=== PATIENT | female | born 1960 | race Hispanic/Latino ===

== ENCOUNTER 2020-04-08 13:30 | Inpatient (IN) | payer MEDICARE ==
[~2020-04-08] VITALS: Ht 157.5 cm; Wt 69.9 kg
[2020-04-08] MEDS ORDERED: DEXAMETHASONE SOD PHOSPHATE 10MG/ML 1ML VIAL ONE (14:09)
[2020-04-08] MEDS ORDERED: ONDANSETRON HCL 4 MG/2 ML VIAL ONE (14:09)
[2020-04-08] MEDS ORDERED: AZITHROMYCIN 500MG+NS 250ML 250 ML IV ONE (14:09)
[2020-04-08 14:10] LABS: ABG BASE EXCESS -0.2 mmol/L (-2.0-3.0); ABG HCO3 21.9 mmol/L (21.0-28.0); ABG OXYGEN SATURATION 93.8 % (95.0-99.0); ABG PCO2 30 mmHg (32-45)
[2020-04-08] MEDS ORDERED: CEFTRIAXONE SODIUM 1 GM ONE (14:10)
[2020-04-08] MEDS ORDERED: ACETAMINOPHEN 325 MG TAB ONE (14:10)
[2020-04-08 14:38] LABS: BASOPHILS % (AUTO) 0.2 % (0.0-5.0); HEMATOCRIT 45.4 % (36-48); LYMPHOCYTES % (AUTO) 30.3 % (21.0-51.0); MEAN CORPUSCULAR HEMOGLOBIN 29.8 pg (27.0-33.0); MEAN CORPUSCULAR VOLUME 90.3 fL (79-99); NEUTROPHILS % (AUTO) 63.3 % (40.0-77.0); PLATELET COUNT (AUTO) 205 K/uL (130-400); RED BLOOD CELL COUNT(AUTO) 5.03 MIL/uL (4.00-5.50); WHITE BLOOD COUNT (AUTO) 4.7 K/uL (4.8-10.8)
[2020-04-08 14:59] LABS: CREATININE 0.9 mg/dL (0.5-1.5); POTASSIUM 3.7 mmol/L (3.5-5.1)
[2020-04-08 15:03] LABS: ALBUMIN 3.6 g/dL (3.5-5.0); BILIRUBIN,TOTAL 0.3 mg/dL (0.2-1.0); TOTAL PROTEIN, SERUM 7.7 g/dL (6.0-8.3)
[2020-04-08 15:40] LABS: APPEARANCE,URINE Cloudy (CLEAR); BILIRUBIN,URINE Negative (NEGATIVE); COLOR,URINE Dark Yellow (YELLOW); GLUCOSE, URINE (UA) Negative (NEGATIVE); KETONES,URINE >=80 mg/dL (NEGATIVE); LEUKOCYTE ESTERASE ,URINE Small (NEGATIVE); NITRATE,URINE Negative (NEGATIVE); OCCULT BLOOD,URINE Trace (NEGATIVE); PH,URINE 5.5 (5.0-8.0); PROTEIN,URINE POS 1+ mg/dL (NEGATIVE)
[2020-04-08 15:48] LABS: BACTERIA,URINE Few /HPF (None Seen); MUCUS,URINE Few LPF (None Seen); SQUAMOUS EPITHELIAL CELL,UR Moderate /HPF (0-2); YEAST,URINE BUDDING Few /HPF (None Seen)
[2020-04-08] MEDS ORDERED: AZITHROMYCIN 500MG+NS 250ML 250 ML IV SCH (16:45)
[2020-04-08] MEDS ORDERED: LACTULOSE 20 GM/30 ML UDCUP PO PRN (16:45)
[2020-04-08] MEDS ORDERED: HYDRALAZINE HCL 20 MG/ML VIAL IV PRN (16:45)
[2020-04-08] MEDS ORDERED: BENZONATATE 100 MG CAPSULE PO PRN (16:45)
[2020-04-08] MEDS ORDERED: SODIUM CHLORIDE 0.9% 1000ML 1,000 ML IV SCH (16:45)
[2020-04-08] MEDS ORDERED: ENOXAPARIN SODIUM 30 MG/0.3 ML SQ SCH (17:00)
[2020-04-08] MEDS: METHYLPREDNISOLONE SOD SUCC 125MG/2ML VIAL IV SCH (20:00)
[2020-04-08] MEDS ORDERED: ENOXAPARIN SODIUM 30 MG/0.3 ML SQ ONE (20:39)
[2020-04-08] MEDS ORDERED: METHYLPREDNISOLONE SOD SUCC 40MG/ML 1ML ONE (20:39)
[2020-04-08] MEDS ORDERED: SODIUM CHLORIDE 0.9% 1000ML 1,000 ML IV ONE (20:39)
[2020-04-08] MEDS ORDERED: FAMOTIDINE/PF 20 MG/2 ML VIAL IV ONE (20:40)
[2020-04-08] MEDS: ENOXAPARIN SODIUM 30 MG/0.3 ML SQ SCH (21:00)
[2020-04-08] MEDS: FAMOTIDINE/PF 20 MG/2 ML VIAL IV SCH (21:00)
[2020-04-09 02:45] VITALS: BP 129/83
[2020-04-09] MEDS: METHYLPREDNISOLONE SOD SUCC 125MG/2ML VIAL IV SCH (03:25)
[2020-04-09 03:52] LABS: ABG HCO3 25.3 mmol/L (21.0-28.0); ABG OXYGEN SATURATION 96.1 % (95.0-99.0); ABG PCO2 40 mmHg (32-45)
[2020-04-09] MEDS ORDERED: MV-M1TAB20 PO (04:36)
[2020-04-09] MEDS ORDERED: SIMV-46 PO (04:36)
[2020-04-09] MEDS ORDERED: CYCL30DR OU (04:36)
[2020-04-09] MEDS ORDERED: LOTE55OS OU (04:36)
[2020-04-09 04:37] LABS: HEMATOCRIT 41.5 % (36-48); LYMPHOCYTES % (AUTO) 40.9 % (21.0-51.0); MEAN CORPUSCULAR HGB CONC 33.5 g/dL (32.0-36.0); MEAN CORPUSCULAR VOLUME 89.6 fL (79-99); MONOCYTES % (AUTO) 3.1 % (3.0-13.0); PLATELET COUNT (AUTO) 199 K/uL (130-400); RED BLOOD CELL COUNT(AUTO) 4.63 MIL/uL (4.00-5.50); RED CELL DISTRIBUTION WIDTH 12.8 % (11.0-15.5); WHITE BLOOD COUNT (AUTO) 2.3 K/uL (4.8-10.8)
[2020-04-09 04:55] LABS: ALANINE AMINOTRANSFERASE 42 U/L (12-78); ALBUMIN 3.2 g/dL (3.5-5.0); ASPARTATE AMINOTRANSFERASE 47 U/L (10-37); BILIRUBIN,TOTAL 0.3 mg/dL (0.2-1.0); CARBON DIOXIDE 26 mmol/L (21-32); CHLORIDE 102 mmol/L (101-111); CREATININE 0.7 mg/dL (0.5-1.5); GLOMERULAR FILTR. RATE CALC 91 mL/min (>60); GLUCOSE,RANDOM 155 mg/dL (70-105); LACTATE DEHYDROGENASE 209 U/L (81-234); SODIUM SERUM 137 mmol/L (136-145); UREA NITROGEN, BLOOD 12 mg/dL (7-18)
[2020-04-09 05:17] LABS: BAND NEUTROPHILS % (MANUAL) 10 % (0-2); LYMPHOCYTES % (MANUAL) 37 % (22-44); MAN.DIFF COMMENT-IMPRESSION MANUAL DIFFERENTIAL; METAMYELOCYTES % 1 % (0-0); MONOCYTES % (MANUAL) 3 % (2-9); SEGMENTED NEUTROPHILS % 49 % (40-70)
[2020-04-09 08:05] VITALS: BP 129/57
[2020-04-09] MEDS ORDERED: METRONIDAZOLE 500 MG TABLET PO SCH (09:00)
[2020-04-09] MEDS: FAMOTIDINE/PF 20 MG/2 ML VIAL IV SCH ×2 (09:01→20:16)
[2020-04-09] MEDS: CEFTRIAXONE SODIUM 1 GM IV SCH (09:01)
[2020-04-09] MEDS: ENOXAPARIN SODIUM 30 MG/0.3 ML SQ SCH ×2 (09:43→20:16)
[2020-04-09 12:00] VITALS: BP 121/90
[2020-04-09 17:04] VITALS: BP 138/85
[2020-04-09 20:16] VITALS: BP 132/84
[2020-04-10] VITALS (7 sets, daily range): BP systolic 101–132; BP diastolic 69–85
[2020-04-10] MEDS: ACETAMINOPHEN 325 MG TAB PO PRN ×4 (00:23→22:29)
[2020-04-10 04:56] LABS: HEMATOCRIT 44.1 % (36-48); LYMPHOCYTES % (AUTO) 22.5 % (21.0-51.0); MEAN CORPUSCULAR HEMOGLOBIN 30.1 pg (27.0-33.0); MEAN CORPUSCULAR HGB CONC 33.3 g/dL (32.0-36.0); MEAN CORPUSCULAR VOLUME 90.2 fL (79-99); MONOCYTES % (AUTO) 4.4 % (3.0-13.0); NEUTROPHILS % (AUTO) 72.8 % (40.0-77.0); PLATELET COUNT (AUTO) 258 K/uL (130-400); RED BLOOD CELL COUNT(AUTO) 4.89 MIL/uL (4.00-5.50); RED CELL DISTRIBUTION WIDTH 12.9 % (11.0-15.5); WHITE BLOOD COUNT (AUTO) 8.9 K/uL (4.8-10.8)
[2020-04-10 05:15] LABS: BILIRUBIN,TOTAL 0.2 mg/dL (0.2-1.0); MAGNESIUM 2.4 mg/dL (1.80-2.40); POTASSIUM 3.6 mmol/L (3.5-5.1); TOTAL PROTEIN, SERUM 7.2 g/dL (6.0-8.3)
[2020-04-10] MEDS: CEFTRIAXONE SODIUM 1 GM IV SCH (08:41)
[2020-04-10] MEDS: ENOXAPARIN SODIUM 30 MG/0.3 ML SQ SCH ×2 (08:41→22:30)
[2020-04-10] MEDS: FAMOTIDINE/PF 20 MG/2 ML VIAL IV SCH ×2 (08:41→22:29)
[2020-04-10] MEDS ORDERED: DEXAMETHASONE SOD PHOSPHATE 4 MG/ML 1ML VIAL IVP SCH (09:00)
[2020-04-10] MEDS: ONDANSETRON HCL 4 MG/2 ML VIAL IVP PRN ×2 (15:54→22:33)
[2020-04-11 04:28] VITALS: BP 109/71
[2020-04-11 04:56] VITALS: BP 105/71
[2020-04-11 05:17] LABS: BASOPHILS % (AUTO) 0.1 % (0.0-5.0); EOSINOPHILS % (AUTO) 0.1 % (0.0-8.0); HEMATOCRIT 46.6 % (36-48); LYMPHOCYTES % (AUTO) 29.8 % (21.0-51.0); MEAN CORPUSCULAR HEMOGLOBIN 29.5 pg (27.0-33.0); MEAN CORPUSCULAR HGB CONC 32.6 g/dL (32.0-36.0); MEAN CORPUSCULAR VOLUME 90.5 fL (79-99); MONOCYTES % (AUTO) 4.8 % (3.0-13.0); NEUTROPHILS % (AUTO) 64.6 % (40.0-77.0); PLATELET COUNT (AUTO) 250 K/uL (130-400); RED BLOOD CELL COUNT(AUTO) 5.15 MIL/uL (4.00-5.50); RED CELL DISTRIBUTION WIDTH 12.9 % (11.0-15.5); WHITE BLOOD COUNT (AUTO) 6.7 K/uL (4.8-10.8)
[2020-04-11 05:33] LABS: BILIRUBIN,TOTAL 0.3 mg/dL (0.2-1.0); CREATININE 0.9 mg/dL (0.5-1.5); CRP QUANTITATIVE 62.8 mg/L (0.00-9.0); POTASSIUM 3.6 mmol/L (3.5-5.1); TOTAL PROTEIN, SERUM 7.3 g/dL (6.0-8.3)
[2020-04-11 07:44] VITALS: BP 106/61
[2020-04-11] MEDS ORDERED: ZINC220C6 PO (08:56)
[2020-04-11] MEDS ORDERED: ONDA4TAB4 PO (08:56)
[2020-04-11] MEDS ORDERED: LOPE2CAP PO (08:56)
[2020-04-11] MEDS ORDERED: ASCO500T10 PO (08:56)
[2020-04-11] MEDS ORDERED: IBUP-2070 PO (08:56)
[2020-04-11] MEDS ORDERED: BENZ200C53 PO (08:56)
[2020-04-11] MEDS ORDERED: LOPERAMIDE HCL 2 MG CAP PO PRN (09:00)
[2020-04-11] MEDS ORDERED: LOPERAMIDE HCL 2 MG CAP PO SCH (09:00)
[2020-04-11] MEDS: FAMOTIDINE/PF 20 MG/2 ML VIAL IV SCH (09:30)
[2020-04-11] MEDS: ENOXAPARIN SODIUM 30 MG/0.3 ML SQ SCH (09:31)
[2020-04-11 12:22] VITALS: BP 122/69
[2020-04-11 16:22] VITALS: BP 109/64
[2020-04-11 19:50] VITALS: BP 131/85
== END 2020-04-11 20:30 | disposition home or self-care (01) | DRG 871 ==
LOC: EDH 13:30 → EDHIP 16:43 → 2AH 04-09 02:46
PROVIDERS: ADMIT Hospitalist; ATTEND Hospitalist
DX: A41.89 Other specified sepsis (principal); U07.1 COVID-19; J12.89 Other viral pneumonia; R79.89 Other specified abnormal findings of blood chemistry; R53.81 Other malaise; H91.3 Deaf nonspeaking, not elsewhere classified; E78.1 Pure hyperglyceridemia; R11.2 Nausea with vomiting, unspecified; E78.5 Hyperlipidemia, unspecified; E21.0 Primary hyperparathyroidism; E78.00 Pure hypercholesterolemia, unspecified; I10 Essential (primary) hypertension; Z87.891 Personal history of nicotine dependence; Z79.899 Other long term (current) drug therapy
CPT/HCPCS: 36415; 36600; 71045; 80053; 81001; 82306; 82330; 82550; 82728; 82803; 83605; 83615; 83690; 83735; 83880; 83970; 84100; 84145; 84484; 85025; 85378; 86140; 87040; 87177; 87426; 87507; 87804; 93005; 94760; 99291; G0378; J0456; J0696; J1100; J1650; J2405; J2920; J2930; J3490; J7030; U0003